=== PATIENT | female | born 1985 | race Caucasian/White ===

== ENCOUNTER 2018-12-23 15:33 | Emergency (ER) | payer OTHER ==
--- NOTE | 2018-12-23 15:48 | ER Document Report ---
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 Reports she is scheduled to have surgery in 1 week at [facility] for her uterine fibroids. Also reports that she is taking Flagyl for BV. Last pelvic was done in October and she reports she was just informed of the BV. Reports here because she is continuing to have vaginal bleeding for the past 4 weeks. Reports she frequently has to change her tampon sometimes once an hour. Reports she is been taking Motrin for headache without relief of symptoms. No other complaints such as fever vomiting diarrhea. I have greeted and performed a rapid initial assessment of this patient. A comprehensive ED assessment and evaluation of the patient, analysis of test results and completion of the medical decision making process will be conducted by additional ED providers. Dictation of this chart was performed using voice recognition software; therefore, there may be some unintended grammatical errors. Physical Exam - Vital signs Vitals: Temp Pulse Resp BP Pulse Ox 97.8 F 71 18 117/69 100 12/23/18 15:39 12/23/18 15:39 12/23/18 15:39 12/23/18 15:39 12/23/18 15:39 Course - Vital Signs Vital signs: Temp Pulse Resp BP Pulse Ox 97.8 F 71 18 117/69 100 12/23/18 15:39 12/23/18 15:39 12/23/18 15:39 12/23/18 15:39 12/23/18 15:39
[2018-12-23 16:20] LABS: APPEARANCE,URINE CLEAR; BILIRUBIN,URINE NEGATIVE (NEGATIVE); COLOR,URINE YELLOW; GLUCOSE, URINE NEGATIVE (NEGATIVE); KETONES,URINE NEGATIVE (NEGATIVE); LEUKOCYTE ESTERASE,URINE NEGATIVE (NEGATIVE); NITRITE,URINE NEGATIVE (NEGATIVE); PROTEIN,URINE NEGATIVE (NEGATIVE); URINE SPECIFIC GRAVITY 1.015; UROBILINOGEN,URINE NEGATIVE mg/dL (<2.0)
[2018-12-23 16:21] LABS: ABSOLUTE EOSINOPHILS # (AUTO) 0.1 10^3/uL (0.0-0.6); ABSOLUTE LYMPHOCYTES (AUTO) 2.1 10^3/uL (0.5-4.7); ABSOLUTE MONOCYTES (AUTO) 0.4 10^3/uL (0.1-1.4); ABSOLUTE NEUT (AUTO) 5.1 10^3/uL (1.7-8.2); BASOPHILS % (AUTO) 0.2 % (0-2); EOSINOPHILS % (AUTO) 1.5 % (0-6); HEMATOCRIT 35.2 % (36.0-47.0); HEMOGLOBIN 11.6 g/dL (12.0-15.5); LYMPHOCYTES % (AUTO) 27.6 % (13-45); MEAN CORPUSCULAR HEMOGLOBIN 27.5 pg (27.0-33.4); MEAN CORPUSCULAR HGB CONC 32.8 g/dL (32.0-36.0); MEAN CORPUSCULAR VOLUME 84 fl (80-97); MONOCYTES % (AUTO) 5.1 % (3-13); PLATELET COUNT 291 10^3/uL (150-450); RED BLOOD COUNT 4.21 10^6/uL (3.72-5.28); RED CELL DISTRIBUTION WIDTH 14.1 % (11.5-14.0); SEGMENTED NEUTROPHILS % (AUTO) 65.6 % (42-78); TOTAL CELLS COUNTED % (AUTO) 100 %; WHITE BLOOD COUNT 7.8 10^3/uL (4.0-10.5)
[2018-12-23 16:40] LABS: ALBUMIN 4.5 g/dL (3.5-5.0); ALKALINE PHOSPHATASE 38 U/L (38-126); ANION GAP 10 (5-19); ASPARTATE AMINO TRANSFERASE 22 U/L (14-36); BILIRUBIN,DIRECT 0.1 mg/dL (0.0-0.4); BILIRUBIN,TOTAL 0.2 mg/dL (0.2-1.3); BLOOD UREA NITROGEN 16 mg/dL (7-20); CARBON DIOXIDE 25 mmol/L (22-30); CHLORIDE 101 mmol/L (98-107); GLUCOSE 90 mg/dL (75-110); POTASSIUM 3.9 mmol/L (3.6-5.0); TOTAL PROTEIN 7.9 g/dL (6.3-8.2)
[2018-12-23] MEDS ORDERED: METOCLOPRAMIDE HCL INJ/PF 10 MG/2 ML SDV IV ONE (20:31)
[2018-12-23] MEDS ORDERED: KETOROLAC TROMETHAMINE INJ/PF 30 MG/1 ML SDV IV ONE (20:31)
[2018-12-23] MEDS ORDERED: METHOCARBAMOL INJ/PF 1000 MG/10 ML SDV IV ONE (20:31)
[2018-12-23] MEDS ORDERED: NORMAL SALINE 1000 ML 1,000 ML IV ONE (20:31)
--- NOTE | 2018-12-23 20:33 | ER Document Report ---
ED General - General Chief Complaint: Dizziness Stated Complaint: DIZZINESS,HEADACHE Time Seen by Provider: 12/23/18 15:41 Mode of Arrival: Ambulatory Notes: Patient is a 33-year-old female that comes to the emergency department for chief complaint of intermittent lightheadedness and a headache that has been going on for the past several days. She states that she has been diagnosed with uterine fibroids and has persistent vaginal bleeding, she has had daily vaginal bleeding since 11/29/2018, she is on control for this now, she states it was heavy but it actually has slowed down now. She is also on iron supplement and she is currently on Flagyl for bacterial vaginosis. [place] [employer] [facility] [facility] [place] follow[place]up appointment for her uterine fibroids. She states she is concerned she may be becoming very anemic because of her symptoms. She denies fever, head injury, photophobia, phonophobia, focal numbness or weakness, nausea or vomiting. She states she has abdominal pain but this is constant and has been attributed to her fibroids. - Related Data Allergies/Adverse Reactions: No Known Allergies Allergy (Unverified 12/23/18 15:53) Past Medical History - General Information source: Patient - Social History Smoking Status: Never Smoker Chew tobacco use (# tins/day): No Frequency of alcohol use: None Drug Abuse: None Lives with: Alone Family History: Reviewed & Not Pertinent Patient has suicidal ideation: No Patient has homicidal ideation: No - Immunizations Immunizations up to date: Yes Hx Diphtheria, Pertussis, Tetanus Vaccination: Yes Review of Systems - Review of Systems Constitutional: No symptoms reported EENT: No symptoms reported Cardiovascular: No symptoms reported Respiratory: No symptoms reported Gastrointestinal: See HPI Genitourinary: See HPI Female Genitourinary: See HPI Musculoskeletal: No symptoms reported Skin: No symptoms reported Hematologic/Lymphatic: No symptoms reported Neurological/Psychological: See HPI Physical Exam - Vital signs Vitals: Temp Pulse Resp BP Pulse Ox 97.8 F 71 18 117/69 100 12/23/18 15:39 12/23/18 15:39 12/23/18 15:39 12/23/18 15:39 12/23/18 15:39 - Notes Notes: GENERAL: Alert, interacts well. No acute distress. HEAD: Normocephalic, atraumatic. EYES: Pupils equal, round, and reactive to light. Extraocular movements intact. ENT: Oral mucosa moist, tongue midline. Oropharynx unremarkable. Airway patent. NECK: Full range of motion. Supple. Trachea midline. LUNGS: Clear to auscultation bilaterally, no wheezes, rales, or rhonchi. No respiratory distress. HEART: Regular rate and rhythm. No murmur ABDOMEN: Soft, non-tender. Non-distended. Bowel sounds present in all 4 quadrants. GENITOURINARY: Deferred EXTREMITIES: Moves all 4 extremities spontaneously. No edema, normal radial and dorsalis pedis pulses bilaterally. No cyanosis. BACK: no cervical, thoracic, lumbar midline tenderness. No saddle anesthesia, normal distal neurovascular exam. Moves all extremities in full range of motion. NEUROLOGICAL: Alert and oriented x3. Normal speech. Cranial nerves II through XII grossly intact. PSYCH: Normal affect, normal mood. SKIN: Warm, dry, normal turgor. No rashes or lesions noted. Course - Re-evaluation Re-evalutation: Patient states her headache is in the back of her head and occasionally comes around her forehead and a band without nausea, vomiting, photophobia, phonophobia. She is very well-appearing and not in any distress. Most consistent with a tension headache, neurologically intact, no deficits, very well-appearing. Hemoglobin is fortunately 11.6, CBC unremarkable otherwise. On reevaluation after treatment for suspected tension headache headache is gone, patient with no complaints. Completely normal physical exam. Discussed [facility] follow-up, primary care follow-up for treatment of tension headaches, return precautions. Patient states appreciation and agreement. Stable at time of d ischarge. - Vital Signs Vital signs: Temp Pulse Resp BP Pulse Ox 98.1 F 85 18 108/67 100 12/23/18 23:14 12/23/18 23:14 12/23/18 15:39 12/23/18 23:14 12/23/18 23:14 - Laboratory Result Diagrams: 12/23/18 16:00 12/23/18 16:00 Laboratory results interpreted by me: 12/23/18 12/23/18 16:00 16:00 Hgb 11.6 L Hct 35.2 L RDW 14.1 H Sodium 136.2 L Discharge - Discharge Clinical Impression: Headache Qualifiers: Headache type: unspecified Headache chronicity pattern: acute headache Intractability: not intractable Qualified Code(s): R51 - Headache Menorrhagia Qualifiers: Menorrahagia type: with irregular cycle Qualified Code(s): N92.1 - Excessive and frequent menstruation with irregular cycle Condition: Stable Disposition: HOME, SELF-CARE Additional Instructions: Your hemoglobin is reassuring at this time. Your work-up does not show any concerning finding otherwise. Your evaluation is most consistent with tension headaches, take the Fioricet if needed, follow-up with primary care for additional evaluation and management of headaches. Return if you worsen including heavy bleeding with dizziness, passing out, severe abdominal pain, fever, vomiting, severe worsening headache, or any other concerning or worsening symptoms. Prescriptions: Butalb/Acetaminophen/Caffeine [Fioricet (50-325-40 mg) Tablet] 1 tab PO Q4HP PRN #20 tab PRN Reason:
[2018-12-23 23:47] VITALS: BP 108/67
== END 2018-12-23 23:54 | disposition home or self-care (01) ==
LOC: ER 15:33
DX: R51 Headache (principal); N92.1 Excessive and frequent menstruation with irregular cycle; N76.0 Acute vaginitis; B96.89 Other specified bacterial agents as the cause of diseases classified elsewhere; D25.9 Leiomyoma of uterus, unspecified; Z79.3 Long term (current) use of hormonal contraceptives; R42 Dizziness and giddiness; Z79.899 Other long term (current) drug therapy
CPT/HCPCS: 36415; 85025; 81025; 80053; 81001; J2800; J1885; J2765; J7030